=== PATIENT | female | born 1960 | race Caucasian/White ===

== ENCOUNTER 2017-01-27 10:15 | Emergency (ER) | payer BC, OTHER ==
[~2017-01-27] VITALS: Ht 162.6 cm; Wt 65.3 kg
[~2017-01-27 10:15] MED LIST: ESTR0.5T4 PO; METH5TAB78 PO
[2017-01-27 10:18] VITALS: BP_SYST 137
[2017-01-27 10:45] LABS: BASOPHILS % (AUTO) 0.3 % (0.0-2.0); EOSINOPHILS # (AUTO) 0.1 K/uL (0.0-0.4); EOSINOPHILS % (AUTO) 0.8 % (0.0-4.0); HEMATOCRIT 36.9 % (36-48); HEMOGLOBIN 12.2 g/dL (12.0-16.0); LYMPHOCYTES # (AUTO) 1.6 K/uL (1.0-5.5); LYMPHOCYTES % (AUTO) 25.3 % (20.5-51.5); MEAN CORPUSCULAR HEMOGLOBIN 30 pg (27-31); MEAN CORPUSCULAR HGB CONC 33 % (32-36); MEAN CORPUSCULAR VOLUME 91 fL (79.0-98.0); MONOCYTES # (AUTO) 0.7 K/uL (0.0-1.0); MONOCYTES % (AUTO) 10.6 % (1.7-9.3); PLATELET COUNT (AUTO) 384 K/uL (130-430); RED BLOOD CELL COUNT(AUTO) 4.08 MIL/uL (4.2-6.2); RED CELL DISTRIBUTION WIDTH 11.5 % (9.0-15.0); WHITE BLOOD COUNT (AUTO) 6.4 K/uL (4.8-10.8)
[2017-01-27 10:48] LABS: BILIRUBIN,URINE NEGATIVE (NEGATIVE); BLOOD, URINE 2+ (NEGATIVE); CLARITY/URINE CLEAR (CLEAR); COLOR,URINE YELLOW (YELLOW); GLUCOSE,URINE NEGATIVE (NEGATIVE); KETONES,URINE NEGATIVE (NEGATIVE); LEUKOCYTE ESTERASE ,URINE NEGATIVE (NEGATIVE); NITRITE, URINE NEGATIVE (NEGATIVE); PROTEIN URINE NEGATIVE (NEGATIVE); UROBILINOGEN,URINE 0.2 (0.2-1.0)
[2017-01-27 10:52] LABS: CALCIUM 9.6 mg/dL (8.4-11.0); CREATININE 1.92 mg/dL (0.55-1.30); POTASSIUM 3.8 mmol/L (3.5-5.1)
[2017-01-27] MEDS ORDERED: NACL 0.9% 1,000 ML IV ONE (11:00)
[2017-01-27 11:04] LABS: BACTERIA,URINE RARE /HPF (None Seen)
[2017-01-27 11:08] LABS: ALBUMIN 3.3 g/dL (3.4-4.8); THYROID STIMULATING HORMONE 1.29 uIu/mL (0.34-4.82); TOTAL BILIRUBIN 0.4 mg/dL (0.0-1.0); TOTAL PROTEIN, SERUM 8.5 g/dL (6.4-8.3)
[2017-01-27 13:03] LABS: CALCIUM 8.8 mg/dL (8.4-11.0); CREATININE 1.8 mg/dL (0.55-1.30); POTASSIUM 3.7 mmol/L (3.5-5.1)
[2017-01-27 14:18] VITALS: BP_SYST 137
== END 2017-01-27 14:16 | disposition home or self-care (01) ==
LOC: SED 10:15
DX: N39.0 Urinary tract infection, site not specified (principal); N17.9 Acute kidney failure, unspecified; Z88.2 Allergy status to sulfonamides
CPT/HCPCS: 36415; 80048; 80053; 81000-TC; 84443-TC; 85025; 96360; 99284; J7030

== ENCOUNTER 2018-06-30 16:08 | Emergency (ER) | payer BC, OTHER ==
[~2018-06-30] VITALS: Ht 162.6 cm; Wt 65.8 kg
[2018-06-30 16:08] VITALS: BP_SYST 151
[2018-06-30] MEDS ORDERED: NACL 0.9% 1,000 ML IV ONE (16:15)
[2018-06-30 16:49] LABS: CALCIUM 9.4 mg/dL (8.4-11.0); CREATININE 1.03 mg/dL (0.55-1.30); POTASSIUM 3.7 mmol/L (3.5-5.1)
[2018-06-30 16:51] LABS: BILIRUBIN,URINE NEGATIVE (NEGATIVE); CLARITY/URINE CLEAR (CLEAR); COLOR,URINE YELLOW (YELLOW); GLUCOSE,URINE NEGATIVE (NEGATIVE); KETONES,URINE NEGATIVE (NEGATIVE); LEUKOCYTE ESTERASE ,URINE TRACE (NEGATIVE); NITRITE, URINE NEGATIVE (NEGATIVE); PROTEIN URINE NEGATIVE (NEGATIVE); UROBILINOGEN,URINE 0.2 (0.2-1.0)
[2018-06-30 16:53] LABS: INR 0.9 (0.8-1.2); PROTHROMBIN TIME 9.6 SECS (9.5-12.5)
[2018-06-30 16:54] LABS: BLOOD, URINE TRACE (NEGATIVE)
[2018-06-30 16:57] LABS: TOTAL BILIRUBIN 0.6 mg/dL (0.0-1.0)
[2018-06-30 16:57] LABS: BACTERIA,URINE FEW /HPF (None Seen)
[2018-06-30 17:18] LABS: WHITE BLOOD COUNT (AUTO) 5.2 K/uL (4.8-10.8)
[2018-06-30 17:19] LABS: HEMATOCRIT 39.3 % (36-48); HEMOGLOBIN 13.1 g/dL (12.0-16.0); MEAN CORPUSCULAR HEMOGLOBIN 30 pg (27-31); MEAN CORPUSCULAR HGB CONC 33 % (32-36); MEAN CORPUSCULAR VOLUME 91 fL (79.0-98.0); RED CELL DISTRIBUTION WIDTH 12.9 % (9.0-15.0)
[2018-06-30 17:20] LABS: PLATELET COUNT (AUTO) 328 K/uL (130-430)
[2018-06-30 18:16] LABS: BAND % (MANUAL) 5 % (0-6)
[2018-06-30 18:17] LABS: BASOPHILS % (MANUAL) 0 % (0-2); EOSINOPHILS % (MANUAL) 2 % (0-7); LYMPHOCYTES % (MANUAL) 51 % (20-46); MONOCYTES % (MANUAL) 10 % (0-11)
[2018-06-30 19:11] VITALS: BP_SYST 151
== END 2018-06-30 19:11 | disposition home or self-care (01) ==
LOC: SED 16:08
DX: R60.0 Localized edema (principal); L93.0 Discoid lupus erythematosus; E07.9 Disorder of thyroid, unspecified; Z90.89 Acquired absence of other organs; Z88.2 Allergy status to sulfonamides; Z79.899 Other long term (current) drug therapy; Z88.8 Allergy status to other drugs, medicaments and biological substances
CPT/HCPCS: 36415; 71045; 80053; 81000; 82150; 82550; 83690; 83880; 84484; 85007; 85027; 85610; 85730; 87086; 93005; 99285; J7030

== ENCOUNTER 2018-10-02 09:45 | Emergency (ER) | payer BC, OTHER ==
[~2018-10-02] VITALS: Ht 162.6 cm; Wt 68.0 kg
[2018-10-02 09:45] VITALS: BP_SYST 130
[2018-10-02] MEDS ORDERED: MECLIZINE HCL 25 MG TABLET (ANITVERT) PO ONE (10:15)
[2018-10-02 10:28] LABS: EOSINOPHILS # (AUTO) 0.1 K/uL (0.0-0.4); HEMATOCRIT 38.7 % (36-48); HEMOGLOBIN 12.5 g/dL (12.0-16.0); LYMPHOCYTES # (AUTO) 1.7 K/uL (1.0-5.5); LYMPHOCYTES % (AUTO) 46.7 % (20.5-51.5); MEAN CORPUSCULAR HEMOGLOBIN 30 pg (27-31); MEAN CORPUSCULAR HGB CONC 32 % (32-36); MEAN CORPUSCULAR VOLUME 92 fL (79.0-98.0); MONOCYTES # (AUTO) 0.3 K/uL (0.0-1.0); MONOCYTES % (AUTO) 7.8 % (1.7-9.3); NEUTROPHILS # (AUTO) 1.6 K/uL (1.8-7.7); PLATELET COUNT (AUTO) 337 K/uL (130-430); RED BLOOD CELL COUNT(AUTO) 4.21 MIL/uL (4.2-6.2); RED CELL DISTRIBUTION WIDTH 12.3 % (9.0-15.0); WHITE BLOOD COUNT (AUTO) 3.7 K/uL (4.8-10.8)
[2018-10-02 10:39] LABS: CALCIUM 9.5 mg/dL (8.4-11.0); CREATININE 0.75 mg/dL (0.55-1.30); POTASSIUM 3.9 mmol/L (3.5-5.1)
[2018-10-02 10:57] LABS: ALBUMIN 3.6 g/dL (3.4-4.8); TOTAL BILIRUBIN 0.6 mg/dL (0.0-1.0)
[2018-10-02 11:18] LABS: NEUTROPHILS % (AUTO) 42.5 % (40.0-70.0)
[2018-10-02 11:40] VITALS: BP_SYST 130
== END 2018-10-02 11:40 | disposition home or self-care (01) ==
LOC: SED 09:45
DX: H81.10 Benign paroxysmal vertigo, unspecified ear (principal); R03.0 Elevated blood-pressure reading, without diagnosis of hypertension; E03.9 Hypothyroidism, unspecified
CPT/HCPCS: 36415; 70450; 80053; 84484; 85025; 93005; 99284; J8597

== ENCOUNTER 2021-02-28 21:05 | Emergency (ER) | payer BC ==
[~2021-02-28] VITALS: Ht 162.6 cm; Wt 74.8 kg
[~2021-02-28 21:05] MED LIST changes: +METH5TAB6 PO; -METH5TAB78 PO
[2021-02-28 21:14] VITALS: BP_SYST 146
--- NOTE | 2021-02-28 21:18 | NUR ---
Patient to [facility] for evaluation. Side rails up. Report given to LINA Brink.
--- NOTE | 2021-02-28 21:29 | NUR ---
Dr. Cortez bedside for pt eval
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
--- NOTE | 2021-02-28 21:58 | NUR ---
VSS no s/s of acute distress Resting on gurney rails up
[2021-02-28 22:20] VITALS: BP_SYST 138
--- NOTE | 2021-02-28 22:20 | NUR ---
Patient given written and verbal discharge instructions and verbalizes understanding. ER MD discussed with patient the results and treatment provided. Patient in stable condition. ID arm band removed. Patient educated on pain management and to follow up with PMD. Pain Scale 0/10 Opportunity for questions provided and answered.
== END 2021-02-28 22:20 | disposition home or self-care (01) ==
LOC: SED 21:05
DX: Z02.89 Encounter for other administrative examinations (principal); E03.9 Hypothyroidism, unspecified
CPT/HCPCS: 99281